=== PATIENT | male | born 1955 | race Caucasian/White ===

== ENCOUNTER → 2017-09-23 | Day surgery (SDC) | payer OTHER ==
[2017-09-22 11:41] VITALS: BMI 29.8
[~2017-09-23] MED LIST: ALPRAZolam 0.25 MG TAB PO PRN; ALPRAZolam 0.5 MG TAB PO PRN; ASPIRIN 325 MG TAB PO STA; HEPARIN SODIUM 1,000 UN/ML (10ML VL) ONE; IODIXANOL 320 MG/ML 100 ML INTRAARTER ONE; LIDOCAINE 2% INJ 20 MG/ML (20 ML MDV) ONE; LIDOCAINE 2% INJ 20 MG/ML SQ ONE; LOSARTAN 50 MG TAB PO SCH; METOPROLOL TARTRATE 50 MG TAB PO STA; MIDAZOLAM 2 MG/2 ML VIAL IV ONE; MIDAZOLAM 2 MG/2 ML VIAL ONE; NITROGLYCERIN SL TABS 0.4 MG TAB SUBLINGUAL ONE; NITROGLYCERIN SL TABS 0.4 MG TAB SUBLINGUAL PRN; SODIUM CHLORIDE 0.9% 1,000 ML IV SCH; SODIUM CHLORIDE 0.9% 1,000 ML in EMPTY BAG 1 BAG IV ONE; VERAPAMIL 2.5 MG/ML 2 ML AMP ONE; VERAPAMIL SYRINGE (5 MG/10 ML) INTRAARTER ONE; cloNIDine HCL 0.1 MG TAB PO STA; diphenhydrAMINE 50 MG/ML 1 ML VIAL IVP ONE; diphenhydrAMINE 50 MG/ML 1 ML VIAL ONE
[2017-09-23 07:18] VITALS: RESP 18
[2017-09-23 07:25] LABS: INR 1.4 (<1.2)
[2017-09-23 07:26] LABS: Prothrombin Time 13.7 sec (9.0-12.0)
[2017-09-23 09:10] VITALS: TEMP 98.2
--- NOTE | 2017-09-23 09:10 | CC ---
CARDIAC CATHETERIZATION REPORT DATE OF SERVICE: 09/23/2017. PROCEDURE: Left heart catheterization, coronary angiography. PERFORMED BY: Dr. Luis Prabhakar. CLINICAL INFORMATION: Mr. Paco Alex is a gentleman who was seen by me about 6 weeks ago who presented with a florid heart failure in atrial fibrillation, rapid ventricular rate. He also had cellulitis of his lower extremities. Diagnosis of cardiomyopathy was made with ejection fraction of less than 20%, and after controlling the atrial fib rate, he was advised to come in for an elective cardiac catheterization. He was also given a Life Vest. Heart failure management was optimized. The purpose of coronary angiography was to rule out any obstructive CAD as a contributing factor for his poor ejection fraction. There was also a history of alcoholism as well. PROCEDURE NOTE: Under local anesthesia and strict aseptic precautions, a 6-Danish introducer was placed in the right radial artery. Using a Ultimata 1 catheter I performed selective coronary angiography and a pigtail catheter was used to check LV pressures. The catheter was taken out and the sheath was taken out after giving verapamil as per protocol. Patient was on Coumadin. INR was about 1.5 or so. I did not give any heparin. I did not get a good blood return after placing the TR band. However, the saturation of the fingers of the right hand the index finger was 96%. The patient tolerated the procedure well without complications. The findings were discussed with him and I also spoke to a friend of his to come and pick him up at 4 o'clock. I reviewed with him the results and showed him the pictures. He does not have any significant obstructive CAD. CARDIAC CATHETERIZATION FINDINGS: The left ventricle end-diastolic pressure was 18 mmHg and there was no gradient across aortic valve. CORONARY ANGIOGRAPHIC FINDINGS: Right coronary artery: Very large dominant vessel. No significant disease. Distally bifurcates into PDA and PLV and supplies a sizable amount of myocardium. Dominant disease-free RCA is noted. Left main coronary artery: Short patent disease-free vessel that almost trifurcates into 3 branches. No significant disease in the left main. Left anterior descending coronary artery: Good caliber vessel extends along the anterior wall gives off septal and diagonal branches. The diagonal branch has a 55% stenosis at the ostium as it comes off. The LAD is free of significant disease. It runs all the way to the apex, curves over the apex to supply the inferoapical portion. No significant disease in LAD. Diagonal has a 55% stenosis in the proximal/ostial portion as it comes off from the left anterior descending coronary artery. Ramus intermedius or high first obtuse marginal: This vessel runs laterally, gives off 2 branches, sizable myocardium being supplied by it. No significant disease. Left posterior circumflex coronary artery: This is a nondominant vessel runs in the AV groove, has minor irregularities distally and has no significant disease. Left ventriculogram: This was not performed. SEDATION: Moderate conscious sedation was provided for 28 minutes. FINAL IMPRESSION: This patient has a 55% stenosis involving a major diagonal branch. He has a right dominant system, acceptable filling pressures. No other significant disease. His cardiomyopathy is probably nonischemic in origin. RECOMMENDATION: Findings were discussed with the patient. We will continue current medical therapy. I will increase the losartan to 50 mg daily and we will discharge him later on today and obtain an echocardiogram to check LV function noninvasively. Results were discussed with the patient. No other family member was available. I spoke to a friend who will pick him up at 4:00 pm. MMODL / IJN: [id number] /
--- NOTE | 2017-09-23 12:56 | ECHOF ---
Referral Reason:CARDIOMYOPATHY MEASUREMENTS -------- HEIGHT: 170.2 cm WEIGHT: 88.5 kg BP: RVIDd: 3.8 cm (< 3.3) IVSd: 1.6 cm (0.6 - 1.1) LVIDd: 5.7 cm (3.9 - 5.3) LVPWd: 2.2 cm (0.6 - 1.1) IVSs: 1.6 cm LVIDs: 5.6 cm LVPWs: 1.8 cm LA Diam: 4.8 cm (2.7 - 3.8) LAESV Index (A-L): 71.58 ml/m Ao Diam: 2.8 cm (2.0 - 3.7) LA Diam: 4.4 cm (2.7 - 3.8) EPSS: 1.5 cm MV E Tobi: 1.06 m/s MV DecT: 212 ms MV A Tobi: 0.18 m/s MV E/A Ratio: 5.80 RAP: 5.00 mmHg RVSP: 11.77 mmHg MV EF SLOPE: 83.67 mm/s (70 - 150) MV EXCURSION: 1.82 cm (> 18.000) FINDINGS -------- Atrial fibrillation. This was a technically excellent study. The left ventricular size is at upper limits of normal. There is moderate concentric left ventricula r hypertrophy. There is moderate global hypokinesis of LV . Overall left ventricular systolic fun ction is moderately impaired with, an EF between 35 - 40 %. The right ventricle is normal in size. LA is severely dilated >40 ml/m2 The right atrium is moderately enlarged. The aortic valve is trileaflet, and appears structurally normal. No aortic stenosis or regurgitation. Mild mitral regurgitation is present. Mild tricuspid regurgitation present. There is no evidence of pulmonary hypertension. Trace/mild (physiologic) pulmonic regurgitation. The aortic root size is normal. There is a small, generalized pericardial effusion present. CONCLUSIONS -------- 1. The left ventricular size is at upper limits of normal. 2. There is moderate concentric left ventricular hypertrophy. 3. There is moderate global hypokinesis of LV . 4. LA is severely dilated >40 ml/m2 5. The right atrium is moderately enlarged. 6. The aortic valve is trileaflet, and appears structurally normal. No aortic stenosis or regurgitati on. 7. Mild mitral regurgitation is present. 8. Mild tricuspid regurgitation present. 9. There is no evidence of pulmonary hypertension. 10. Trace/mild (physiologic) pulmonic regurgitation. 11. The aortic root size is normal. 12. There is a small, generalized pericardial effusion present. GROCERY PACKER: Sydnie Guajardo RDCS
[2017-09-23 15:58] VITALS: BP 153/67; PULSE 62
== END ==
LOC: CATHCVL 06:32
PROVIDERS: ATTEND Internal Medicine Interventional Cardiology
DX: I25.10 Atherosclerotic heart disease of native coronary artery without angina pectoris (principal); I11.0 Hypertensive heart disease with heart failure; I50.23 Acute on chronic systolic (congestive) heart failure; Z87.891 Personal history of nicotine dependence; I08.1 Rheumatic disorders of both mitral and tricuspid valves; I31.3 Pericardial effusion (noninflammatory); I48.1 Persistent atrial fibrillation; Z79.01 Long term (current) use of anticoagulants; Z82.49 Family history of ischemic heart disease and other diseases of the circulatory system; I42.6 Alcoholic cardiomyopathy; Z79.82 Long term (current) use of aspirin; Z79.899 Other long term (current) drug therapy
CPT/HCPCS: 93306; 93458; 85610; J2001; J2250; J1200; Q9967

== ENCOUNTER → 2018-03-17 | Outpatient (CLI) | payer OTHER ==
[2018-03-17 16:11] LABS: Calcium 9.7 mg/dL (8.4-10.2); Potassium 4.5 mmol/L (3.5-5.1)
== END | disposition home or self-care (01) ==
LOC: LABWHC1 15:24
PROVIDERS: ATTEND Internal Medicine Interventional Cardiology
DX: I10 Essential (primary) hypertension (principal)
CPT/HCPCS: 36415; 80048

== ENCOUNTER → 2023-12-14 | Outpatient (CLI) | payer MEDICARE, BC ==
--- NOTE | 2023-12-15 12:40 | US ---
EXAMINATION TYPE: US kidneys/renal and bladder DATE OF EXAM: 12/14/2023 COMPARISON: 2016 CLINICAL INDICATION: Male, 68 years old with history of N18.2 CHRONIC KIDNEY DISEASE, STAGE 2; EXAM MEASUREMENTS: Right Kidney: 11.4 x 5.6 x 4.8 cm Left Kidney: 11.3 x 5.7 x 5.3 cm Right Kidney: No hydronephrosis or masses seen Left Kidney: Multiple cystic areas noted; largest measuring 3.7 x 3.4 x 3.2 cm Bladder: Anechoic; not fully distended on solid color images, questionable mural based nodularity lef t posterior bladder base measuring 1.8 cm versus artifact. Bilateral Jets seen: Yes IMPRESSION: 1. No hydronephrosis. 2. Benign renal cortical cysts on the left measuring up to 3.7 cm. 3. Artifact versus questionable 1.8 cm mural nodularity left posterior bladder base. The former is fa vored. Correlate with urinalysis and urine cytology and a three-month follow-up bladder ultrasound to reassess.
== END | disposition home or self-care (01) ==
LOC: RADUSWWP 16:07
PROVIDERS: ATTEND Family Medicine
DX: N32.89 Other specified disorders of bladder (principal); N18.2 Chronic kidney disease, stage 2 (mild)
CPT/HCPCS: 76770